=== PATIENT | female | born 1965 | race Caucasian/White ===

== ENCOUNTER 2022-01-01 18:22 | Inpatient (IN) ==
[2022-01-01 20:01] LABS: ABS Basophils 0.1 10^3/ul (0-0.2); ABS Eosinophils 0.2 10^3/ul (0-0.6); ABS Lymphocytes 1.8 10^3/ul (1.0-4.8); ABS Monocytes 0.5 10^3/ul (0-0.8); ABS Neutrophils 1.7 10^3/ul (1.5-7.7); Eosinophil % 4.2 %; Hematocrit 25 % (35-47); Hemoglobin 7.6 g/dL (12.0-16.0); Lymphocyte % 42.4 %; Mean Corpuscular HGB Conc 31 g/dL (31-36); Mean Corpuscular Hemoglobin 26 pg (27-31); Mean Corpuscular Volume 82 fL (80-97); Mean Platelet Volume 6.7 fL (7.4-10.4); Platelet Count 338 10^3/uL (150-450); Red Blood Count 2.97 10^6 /uL (3.70-4.87); Red Cell Distribution Width 18 % (10-15); White Blood Count 4.3 10^3/uL (3.5-10.8)
[2022-01-01 20:06] LABS: INR 1.22 (0.86-1.15)
[2022-01-01 20:25] LABS: High Sens Troponin Baseline 5 pg/mL (<15)
[2022-01-01 20:45] LABS: ALT 25 U/L (7-52); AST 32 U/L (13-39); Albumin/Globulin Ratio 1.2 (1-3); Alkaline Phosphatase 104 U/L (35-149); Anion Gap 3 mmol/L (2-11); Blood Urea Nitrogen 16 mg/dL (6-24); CO2 Carbon Dioxide 30 mmol/L (22-32); Calcium 8.3 mg/dL (8.6-10.3); Chloride 106 mmol/L (101-111); Globulin 2.6 g/dL (2-4); Glucose 73 mg/dL (70-100); Potassium 4.2 mmol/L (3.5-5.0); Sodium 139 mmol/L (135-145); Total Protein 5.6 g/dL (6.4-8.9); eGFR CKD-EPI 118.3 (>60)
[2022-01-01 22:02] LABS: High Sensitivity Troponin 1 Hr 5 pg/mL (<15)
[2022-01-01] MEDS ORDERED: Iodixanol (CONTRAST) 320 MG/ML 100 ML SDV IV ONE (22:15)
[2022-01-01 23:51] LABS: Corrected Retic Count 1.1 % (0.5-1.5); Hematocrit for Retic CNT 24 % (35-47); Immature Retic Fraction 0.55; RBC Retic Count 2.95 10^6/uL (3.70-4.87)
[2022-01-01 23:52] LABS: % Iron Saturation 16 % (15-55); Iron 63 ug/dL (50-212); Total Iron Binding Capacity 386 mcg/dL (250-450); Transferrin 276 mg/dL (203-362); Unsaturated Iron Binding 323 ug/dL
[2022-01-02 00:12] LABS: Ferritin 6.5 ng/mL (11-307)
[2022-01-02] MEDS ORDERED: oxyCODONE/Acetamin 5/325 mg TAB PO ONE (00:26)
[2022-01-02 00:54] LABS: C Reactive Protein < 1.00 mg/L (<8.01)
[2022-01-02 01:14] LABS: Anisocytosis 2+; Hypochromasia 1+
[2022-01-02 12:03] LABS: LDH 270 U/L (140-271)
[2022-01-02] MEDS: oxyCODONE/Acetamin 5/325 mg TAB PO PRN ×2 (12:47→20:20)
[2022-01-02] MEDS ORDERED: diPHENhydraMINE 25 mg TAB PO ONE (14:22)
[2022-01-02 19:11] LABS: Urine Appearance Clear; Urine Bilirubin Negative (Negative); Urine Blood Negative (Negative); Urine Color Yellow; Urine Glucose Negative (Negative); Urine Ketones Negative (Negative); Urine Nitrite Negative (Negative); Urine Protein Negative (Negative); Urine Specific Gravity 1.017 (1.002-1.030); Urine Urobilinogen Negative (Negative)
[2022-01-02 19:27] LABS: Urine Benzodiazepine Screen Presumptive Positive (None Detect); Urine Cannabinoids Screen Presumptive Positive (None Detect); Urine Opiates Screen Presumptive Positive (None Detect)
[2022-01-03 05:36] LABS: Hematocrit 30 % (35-47); Hemoglobin 9.7 g/dL (12.0-16.0); Mean Corpuscular HGB Conc 32 g/dL (31-36); Mean Corpuscular Hemoglobin 27 pg (27-31); Mean Corpuscular Volume 83 fL (80-97); Red Blood Count 3.64 10^6 /uL (3.70-4.87); Red Cell Distribution Width 18 % (10-15); White Blood Count 4.7 10^3/uL (3.5-10.8)
[2022-01-03 05:46] LABS: ABS Basophils 0.1 10^3/ul (0-0.2); ABS Eosinophils 0.4 10^3/ul (0-0.6); ABS Lymphocytes 2.1 10^3/ul (1.0-4.8); ABS Monocytes 0.5 10^3/ul (0-0.8); ABS Neutrophils 1.5 10^3/ul (1.5-7.7); Eosinophil % 7.8 %; Lymphocyte % 45.1 %; Nucleated Red Blood Cells % 0.1
[2022-01-03 05:54] LABS: Anion Gap 4 mmol/L (2-11); Blood Urea Nitrogen 13 mg/dL (6-24); CO2 Carbon Dioxide 29 mmol/L (22-32); Calcium 8.3 mg/dL (8.6-10.3); Chloride 104 mmol/L (101-111); Glucose 74 mg/dL (70-100); Magnesium 1.8 mg/dL (1.9-2.7); Potassium 4.2 mmol/L (3.5-5.0); Sodium 137 mmol/L (135-145); eGFR CKD-EPI 122.4 (>60)
[2022-01-03 06:15] LABS: Platelet Count Platelets clumped. 10^3/uL (150-450)
[2022-01-03 06:18] LABS: Folate > 20.00 ng/mL (5.90-24.80)
[2022-01-03] MEDS: Magnesium Sulfate IV 1GM/100ML 1 GM/100 ML BAG IV ONE (08:29)
[2022-01-03] MEDS: oxyCODONE/Acetamin 5/325 mg TAB PO PRN (08:34)
[2022-01-03 11:23] LABS: Lipase 18 U/L (11.0-82.0)
[2022-01-03] MEDS: oxyCODONE SR 10 mg TAB PO SCH ×2 (14:12→20:37)
[2022-01-04] MEDS: oxyCODONE/Acetamin 5/325 mg TAB PO PRN ×3 (03:35→23:33)
[2022-01-04 06:22] LABS: ABS Basophils 0.1 10^3/ul (0-0.2); ABS Eosinophils 0.3 10^3/ul (0-0.6); ABS Lymphocytes 1.8 10^3/ul (1.0-4.8); ABS Monocytes 0.5 10^3/ul (0-0.8); ABS Neutrophils 1.2 10^3/ul (1.5-7.7); Eosinophil % 7.8 %; Hematocrit 27 % (35-47); Hemoglobin 8.7 g/dL (12.0-16.0); Lymphocyte % 45.7 %; Mean Corpuscular HGB Conc 32 g/dL (31-36); Mean Corpuscular Hemoglobin 27 pg (27-31); Mean Corpuscular Volume 83 fL (80-97); Mean Platelet Volume 7.3 fL (7.4-10.4); Nucleated Red Blood Cells % 0.1; Platelet Count 207 10^3/uL (150-450); Red Blood Count 3.27 10^6 /uL (3.70-4.87); Red Cell Distribution Width 18 % (10-15); White Blood Count 3.9 10^3/uL (3.5-10.8)
[2022-01-04 06:47] LABS: Calcium 8.1 mg/dL (8.6-10.3); Magnesium 1.8 mg/dL (1.9-2.7); Potassium 4.1 mmol/L (3.5-5.0)
[2022-01-04] MEDS ORDERED: Magnesium Sulfate IV 1GM/100ML 1 GM/100 ML BAG IV ONE (07:11)
[2022-01-04] MEDS: Calcium (OSCAL) 500 mg TAB PO SCH (08:31)
[2022-01-04] MEDS: oxyCODONE SR 10 mg TAB PO SCH ×2 (08:32→20:55)
[2022-01-04] MEDS: diPHENhydraMINE 25 mg TAB PO PRN (12:05)
[2022-01-04 15:24] LABS: Body Fluid Source Cerebral Spinal
[2022-01-04 15:28] LABS: Urine Appearance Clear; Urine Bilirubin Negative (Negative); Urine Blood Negative (Negative); Urine Color Yellow; Urine Glucose Negative (Negative); Urine Ketones Negative (Negative); Urine Nitrite Negative (Negative); Urine Protein Negative (Negative); Urine Specific Gravity 1.018 (1.002-1.030); Urine Urobilinogen Negative (Negative)
[2022-01-04 15:40] LABS: Body Fluid Appearance Clear; Body Fluid Color Colorless; CSF Tube # 4
[2022-01-04 15:46] LABS: CSF Glucose 58 mg/dL (40-70)
[2022-01-04 15:52] LABS: Body Fluid WBC 0 /mcL
[2022-01-04 17:56] LABS: Body Fluid Total Cells Counted 2
[2022-01-04] MEDS: Acetaminophen IV 1 GM/100ML 100 ML IV PRN (19:02)
[2022-01-05 05:38] LABS: Calcium 7.9 mg/dL (8.6-10.3); Magnesium 1.6 mg/dL (1.9-2.7); Potassium 3.5 mmol/L (3.5-5.0); eGFR CKD-EPI 112.4 (>60)
[2022-01-05] MEDS ORDERED: Potassium Chlor 20 meq TAB.ER PO ONE (06:58)
[2022-01-05] MEDS ORDERED: Magnesium Sulfate IV 3 GM in NS 0.9% 100 ml BAG 100 ML IVPB ONE (06:58)
[2022-01-05 07:32] LABS: ABS Basophils 0.1 10^3/ul (0-0.2); ABS Eosinophils 0.3 10^3/ul (0-0.6); ABS Lymphocytes 1.9 10^3/ul (1.0-4.8); ABS Monocytes 0.5 10^3/ul (0-0.8); ABS Neutrophils 1.6 10^3/ul (1.5-7.7); Eosinophil % 5.8 %; Hematocrit 33 % (35-47); Hemoglobin 10.2 g/dL (12.0-16.0); Mean Corpuscular HGB Conc 32 g/dL (31-36); Mean Corpuscular Hemoglobin 27 pg (27-31); Mean Corpuscular Volume 84 fL (80-97); Mean Platelet Volume 7.9 fL (7.4-10.4); Nucleated Red Blood Cells % 0.4; Red Blood Count 3.86 10^6 /uL (3.70-4.87); Red Cell Distribution Width 19 % (10-15); White Blood Count 4.3 10^3/uL (3.5-10.8)
[2022-01-05] MEDS: oxyCODONE SR 10 mg TAB PO SCH ×2 (07:47→20:46)
[2022-01-05] MEDS ORDERED: Magnesium Sulfate 2 GM IV (Premix) IVPB ONE (08:00)
[2022-01-05 08:12] LABS: Hematocrit 30 % (35-47); Hemoglobin 9.6 g/dL (12.0-16.0)
[2022-01-05] MEDS ORDERED: Magnesium Sulfate 1 GM IV 1 GM/100 ML BAG IV ONE (09:00)
[2022-01-05] MEDS: Calcium (OSCAL) 500 mg TAB PO SCH (09:26)
[2022-01-05] MEDS: Acetaminophen IV 1 GM/100ML 100 ML IV PRN (09:30)
[2022-01-05] MEDS: oxyCODONE/Acetamin 5/325 mg TAB PO PRN ×2 (11:56→18:19)
[2022-01-05] MEDS: diPHENhydraMINE 25 mg TAB PO PRN (11:56)
[2022-01-05] MEDS: Butalb/Acetamin/Caff TAB 325-50-40MG PO PRN (15:06)
[2022-01-05] MEDS: Magnesium Sulfate IV 1GM/100ML 1 GM/100 ML BAG IV ONE (15:07)
[2022-01-06] MEDS: oxyCODONE/Acetamin 5/325 mg TAB PO PRN ×2 (02:26→14:43)
[2022-01-06] MEDS: Butalb/Acetamin/Caff TAB 325-50-40MG PO PRN (05:47)
[2022-01-06] MEDS: Calcium (OSCAL) 500 mg TAB PO SCH (08:42)
[2022-01-06] MEDS: oxyCODONE SR 10 mg TAB PO SCH (08:42)
[2022-01-06 12:40] VITALS: BP 96/56
[2022-01-07 10:28] LABS: Albumin, S 2500 mg/dL; IgG, CSF 1.3 mg/dL (<=8.1); IgG, S 939 mg/dL (767 - 1590); IgG/Albumin, CSF 0.19 (<=0.21); IgG/Albumin, S 0.38 (<=0.40)
[2022-01-07 15:05] LABS: CSF VDRL Negative (Negative)
[2022-01-07 15:20] LABS: Vitamin A, S 42.9 mcg/dL (32.5-78.0)
[2022-01-08 09:58] LABS: Vitamin K Level 0.18 ng/mL (0.10-2.20)
[2022-01-09 01:53] LABS: Vitamin E 5.1 mg/L (5.5 - 17.0)
[2022-01-11 16:11] LABS: CSF West Nile Virus IgG Ab Negative (Negative); CSF West Nile Virus IgM Ab Negative (Negative)
[2022-01-12 18:13] LABS: AGNA-1, CSF Negative titer (<1:2); Amphiphysin Ab, CSF Negative titer (<1:2); CRMP-5-IgG, CSF Negative titer (<1:2); PCA-1, CSF Negative titer (<1:2); PCA-2, CSF Negative titer (<1:2); PCA-Tr, CSF Negative titer (<1:2)
== END 2022-01-06 16:24 | disposition home or self-care (01) | DRG 300 ==
LOC: ED 18:22 → SUATTDRO 01-02 01:33 → EDHOLD 01-02 01:33 → MEDTELE 01-02 03:35
PROVIDERS: ADMIT Internal Medicine; ATTEND Internal Medicine

== ENCOUNTER 2022-02-10 14:56 | Inpatient (IN) ==
[2022-02-10 16:35] LABS: Urine Appearance Cloudy; Urine Bilirubin Negative (Negative); Urine Blood Negative (Negative); Urine Color Yellow; Urine Glucose Negative (Negative); Urine Ketones Negative (Negative); Urine Nitrite Negative (Negative); Urine Protein Negative (Negative); Urine Specific Gravity 1.017 (1.002-1.030); Urine Urobilinogen Negative (Negative)
[2022-02-10 16:58] LABS: Hematocrit 28 % (35-47); Hemoglobin 8.8 g/dL (12.0-16.0); Mean Corpuscular HGB Conc 31 g/dL (31-36); Mean Corpuscular Hemoglobin 25 pg (27-31); Mean Corpuscular Volume 80 fL (80-97); Red Blood Count 3.55 10^6 /uL (3.70-4.87); Red Cell Distribution Width 23 % (10-15); White Blood Count 7.7 10^3/uL (3.5-10.8)
[2022-02-10 17:05] LABS: Urine Benzodiazepine Screen Presumptive Positive (None Detect); Urine Cannabinoids Screen Presumptive Positive (None Detect); Urine Opiates Screen None Detected (None Detect)
[2022-02-10 17:15] LABS: Albumin 3.4 g/dL (3.2-5.2); Anion Gap 11 mmol/L (2-11); CO2 Carbon Dioxide 22 mmol/L (22-32); Calcium 8.6 mg/dL (8.6-10.3); Chloride 102 mmol/L (101-111); Sodium 135 mmol/L (135-145)
[2022-02-10 17:22] LABS: ALT 30 U/L (7-52); AST 40 U/L (13-39); Acetaminophen < 15 mcg/mL; Albumin/Globulin Ratio 1.2 (1-3); Alcohol, S < 13 mg/dL (<13); Alkaline Phosphatase 150 U/L (35-149); Blood Urea Nitrogen 16 mg/dL (6-24); Globulin 2.9 g/dL (2-4); Glucose 114 mg/dL (70-100); Salicylate < 2.50 mg/dL (<30); Total Protein 6.3 g/dL (6.4-8.9); eGFR CKD-EPI 109.7 (>60)
[2022-02-10 17:29] LABS: ABS Eosinophils 0.1 10^3/ul (0-0.6); ABS Lymphocytes 1.4 10^3/ul (1.0-4.8); ABS Monocytes 0.5 10^3/ul (0-0.8); ABS Neutrophils 5.7 10^3/ul (1.5-7.7); Eosinophil % 0.8 %; Lymphocyte % 18.7 %; Nucleated Red Blood Cells % 0.1; Platelet Count Platelets clumped. 10^3/uL (150-450)
[2022-02-10] MEDS ORDERED: Al Hydrox/Mg Hydrox/Simet LIQ 30 ML UDC PO PRN (20:02)
[2022-02-10] MEDS ORDERED: Nicotine GUM 2MG FRUIT FLAVOR PO PRN (21:00)
[2022-02-11] MEDS ORDERED: Nicotine PATCH 14 MG/24 HR PATCH TRANSDERM SCH (09:00)
[2022-02-11] MEDS: Vitamin THERAPEUTIC TAB PO SCH (10:03)
[2022-02-11] MEDS ORDERED: Albuterol HFA INHALER 8 gm MDI INH PRN (11:30)
[2022-02-11] MEDS ORDERED: oxyCODONE SR 10 mg TAB PO SCH ×2 (12:00→12:03)
[2022-02-11] MEDS: Mometasone/Formoter 100/5 MDI INH SCH (17:58)
[2022-02-11] MEDS: oxyCODONE SR 10 mg TAB PO SCH (18:00)
[2022-02-12] MEDS: Mometasone/Formoter 100/5 MDI INH SCH ×2 (08:00→19:17)
[2022-02-12] MEDS: oxyCODONE SR 10 mg TAB PO SCH ×2 (08:01→19:10)
[2022-02-12] MEDS: Vitamin THERAPEUTIC TAB PO SCH (08:01)
[2022-02-12] MEDS ORDERED: oxyCODONE/Acetamin 5/325 mg TAB PO PRN (13:21)
[2022-02-12] MEDS ORDERED: oxyCODONE SR 10 mg TAB PO SCH (19:00)
[2022-02-13] MEDS: oxyCODONE SR 10 mg TAB PO SCH ×2 (07:27→19:04)
[2022-02-13] MEDS: Mometasone/Formoter 100/5 MDI INH SCH ×2 (07:27→19:23)
[2022-02-13] MEDS: Vitamin THERAPEUTIC TAB PO SCH (07:27)
[2022-02-13 08:39] LABS: HDL Cholesterol 49.5 mg/dL
[2022-02-13] MEDS: oxyCODONE/Acetamin 5/325 mg TAB PO PRN (11:50)
[2022-02-14] MEDS: oxyCODONE SR 10 mg TAB PO SCH ×2 (04:52→19:17)
[2022-02-14] MEDS: Vitamin THERAPEUTIC TAB PO SCH (08:46)
[2022-02-14] MEDS: Mometasone/Formoter 100/5 MDI INH SCH ×2 (11:37→19:08)
[2022-02-14] MEDS: oxyCODONE/Acetamin 5/325 mg TAB PO PRN (19:09)
[2022-02-15] MEDS: Mometasone/Formoter 100/5 MDI INH SCH ×2 (07:17→19:03)
[2022-02-15] MEDS: oxyCODONE SR 10 mg TAB PO SCH (07:19)
[2022-02-15] MEDS: Vitamin THERAPEUTIC TAB PO SCH (08:17)
[2022-02-16] MEDS ORDERED: oxyCODONE SR 10 mg TAB PO SCH (07:00)
[2022-02-16] MEDS: Vitamin THERAPEUTIC TAB PO SCH (07:32)
[2022-02-16 09:17] VITALS: BP 134/85
[2022-02-16] MEDS: Mometasone/Formoter 100/5 MDI INH SCH (11:25)
== END 2022-02-16 11:38 | disposition home or self-care (01) | DRG 880 ==
LOC: ED 14:56 → BSU 18:28
PROVIDERS: ADMIT Psychiatry & Neurology Psychiatry; ATTEND Psychiatry & Neurology Psychiatry